=== PATIENT | female | born 1990 | race Asian ===

== ENCOUNTER 2017-10-26 13:56 | Emergency (ER) | payer OTHER ==
[2017-10-26] MEDS ORDERED: DEXAMETHASONE 10 MG/ML VIAL PO STA (15:48)
--- NOTE | 2017-10-26 15:55 | ED Physician Documentation ---
PD HPI UPPER EXT INJURY - Stated complaint Stated Complaint: SHOULDER INJ - Chief complaint Chief Complaint: Ext Problem - History obtained from History obtained from: Patient, Family - History of Present Illness Location: Right, Shoulder Type of injury: Twist Where injury occurred: Work Timing - onset: How many days ago (3) Timing - duration: Days (3) Timing - details: Gradual onset, Still present Improved by: Rest, Immobilization Worsened by: Moving, Palpating Associated symptoms: No: Weakness, Numbness, Tingling, Swelling Contributing factors: No: Anticoagulated Similar symptoms before: Has not had sx before Recently seen: Not recently seen - Additonal information Additional information: 27-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 She felt her shoulder be pulled and she has had pain in the shoulder since. She awoke this morning with worse pain that she has had in the last 2 days and she become concerned there may be more of an injury than she is realizing. She has pain over the supraspinatus area. Review of Systems Constitutional: denies: Fever Eyes: denies: Decreased vision Ears: denies: Ear pain Nose: denies: Congestion Throat: denies: Sore throat Cardiac: denies: Chest pain / pressure Respiratory: denies: Dyspnea, Cough GI: denies: Abdominal Pain, Nausea, Vomiting : denies: Dysuria, Frequency Skin: denies: Rash Musculoskeletal: reports: Extremity pain. denies: Neck pain, Back pain Neurologic: denies: Generalized weakness, Focal weakness, Numbness PD PAST MEDICAL HISTORY - Past Medical History Past Medical History: No - Past Surgical History Past Surgical History: No - Present Medications Home Medications: Ambulatory Orders Medication Instructions Recorded Confirmed No Known Home Medications [No 10/26/17 10/26/17 Known Home Medications] - Allergies Allergies/Adverse Reactions: Allergies Allergy/AdvReac Type Severity Reaction Status Date / Time No Known Drug Allergies Allergy Verified 10/26/17 14:05 - Social History Does the pt smoke?: Yes Smoking Status: Current every day smoker Does the pt drink ETOH?: Yes ETOH Use: Beer Does the pt have substance abuse?: No - Immunizations Immunizations are current?: Yes - POLST Patient has POLST: No PD ED PE NORMAL - Vitals Vital signs reviewed: Yes (Normal) - General General: Alert and oriented X 3, No acute distress, Well developed/nourished - HEENT HEENT: Atraumatic, PERRL, EOMI - Neck Neck: Supple, no meningeal sign, No bony TTP - Respiratory Respiratory: No respiratory distress - Back Back: No spinal TTP - Derm Derm: Normal color, Warm and dry, No rash - Extremities Extremities: No deformity, No edema, Other (There is tenderness to the supraspinatous on the right. There is good ROM of the shoulder passively with all pain referred to the supraspinatous. She is savanna to hold the shoulder in abduction.) - Neuro Neuro: No motor deficit, No sensory deficit Eye Opening: Spontaneous Motor: Obeys Commands Verbal: Oriented GCS Score: 15 - Psych Psych: Normal mood, Normal affect Results - Vitals Vitals: Vital Signs - 24 hr 10/26/17 14:03 Temperature 36.3 C L Heart Rate 71 Respiratory 18 Rate Blood Pressure 110/75 O2 Saturation 100 Oxygen O2 Source Room air - Rads (name of study) right shoulder Radiology: Prelim report reviewed (Impression: Normal shoulder radiography.), EMP read indepedently, See rad report PD MEDICAL DECISION MAKING - ED course Complexity details: reviewed results, re-evaluated patient, considered differential, d/w patient, d/w family ED course: 27-year-old female with a shoulder sprain from a pulling injury at work is placed into a sling and given dexamethasone. She has no evidence of fracture on her x-ray of her shoulder she does have good range of motion with the shoulder she has most of her pain over the supra supraspinatus muscle and she is expected to have full recovery. She is given a sling and instructions on ROM exercises. Departure - Departure Disposition: 01 Home, Self Care Clinical Impression: Sprain of right shoulder Qualifiers: Encounter type: initial encounter Shoulder sprain type: unspecified sprain Qualified Code(s): S43.401A - Unspecified sprain of right shoulder joint, initial encounter Condition: Stable Instructions: ED Sprain Shoulder Follow-Up: [facility] [Provider Group] Forms: Activity restrictions
--- NOTE | 2017-10-26 16:20 | XRAY Report ---
EXAM: RIGHT SHOULDER RADIOGRAPHY EXAM DATE: 10/26/2017 04:13 PM. CLINICAL HISTORY: Pulling injury to supraspinatus. COMPARISON: None. TECHNIQUE: 3 views. FINDINGS: Bones: Normal. No fracture or bone lesion. Joints: The glenohumeral and acromioclavicular joints are normal. Soft tissues: The visualized hemithorax is unremarkable. No soft tissue swelling. IMPRESSION: Normal shoulder radiography. [facility] Referring Provider Line: [phone] SITE ID: [id number]
--- NOTE | 2017-10-26 16:20 | XRAY Preliminary Report ---
Exam: XR SHOULDER 3 VIEW RT IMPRESSION: Normal shoulder radiography. [facility] SITE ID: [id number]
[2017-10-26 16:46] VITALS: BP 99/78
== END 2017-10-26 16:45 | disposition home or self-care (01) ==
LOC: ED 13:56
DX: S43.401A Unspecified sprain of right shoulder joint, initial encounter (principal); X50.9XXA Other and unspecified overexertion or strenuous movements or postures, initial encounter; Y93.F2 Activity, caregiving, lifting; Y92.239 Unspecified place in hospital as the place of occurrence of the external cause; Y99.0 Civilian activity done for income or pay; F17.200 Nicotine dependence, unspecified, uncomplicated
CPT/HCPCS: 99283

== ENCOUNTER 2017-12-11 15:58 | Outpatient (CLI) | payer OTHER ==
--- NOTE | 2017-12-12 11:17 | MRI Report ---
EXAM: RIGHT SHOULDER MRI WITHOUT CONTRAST EXAM DATE: 12/11/2017 05:16 PM. CLINICAL HISTORY: Shoulder pain after trauma. COMPARISON: 10/26/2017 plain x-ray of the shoulder. TECHNIQUE: Multiplanar, multisequence T1-weighted and fluid-sensitive sequences of the shoulder witho ut contrast. Other: None. FINDINGS: Acromioclavicular Region: The acromion is type I unipartite. The acromioclavicular joint is unremarka ble. The coracoacromial and coracoclavicular ligaments are intact. Small amount of bursal fluid. Glenohumeral Region: No subluxation. No effusion or loose bodies. The articular cartilage is unremark able. The glenohumeral ligaments and joint capsule are unremarkable. Bone Marrow: No fracture, marrow edema or bone lesions. Labrum: There is some abnormal signal at the anterior inferior labrum which is difficult to further c haracterize without contrast. Series 701 image 8, series 501 image 10. Musculature/Rotator Cuff: Supraspinatus and infraspinatus tendons are somewhat thickened and show delmer e increased T2 signal. Teres minor subscapularis portions of the cuff appear normal. No proximal musc le bundle fatty atrophy. No edema. Biceps Tendon: The long head of the biceps tendon and biceps jillian are intact. Other: The subcutaneous tissues are unremarkable. IMPRESSION: 1. Type I unipartite undersurface osseous acromion shape. Small amount of bursal fluid is present. 2. Some abnormal signal at the anterior inferior labrum, difficult to further characterize without co ntrast. This may be related to an inferior labral tear. 3. Moderate tendinitis is seen at supraspinatus and infraspinatus portions of the cuff. 4. Long head biceps appears intact. No other worrisome imaging features. [facility] MUSCULOSKELETAL [facility]IOLOGY SECTION Referring Provider Line: [phone] SITE ID: [id number]
== END 2017-12-11 15:59 | disposition home or self-care (01) ==
LOC: DI 15:58
PROVIDERS: ATTEND Orthopaedic Surgery
DX: M75.91 Shoulder lesion, unspecified, right shoulder (principal)

== ENCOUNTER 2020-01-04 10:42 | Outpatient (CLI) | payer BC, OTHER | END 2020-01-04 10:43 | disposition home or self-care (01) | LOC: COV 10:42 | PROVIDERS: ATTEND Family Medicine | DX: R50.9 Fever, unspecified (principal); R05 Cough | CPT/HCPCS: 81599 ==

== ENCOUNTER 2020-07-21 07:00 | Outpatient (CLI) | payer BC | END 2020-07-21 23:59 | disposition home or self-care (01) | LOC: LAB.R 07:00 | PROVIDERS: ATTEND Family Medicine | DX: J02.9 Acute pharyngitis, unspecified (principal) | CPT/HCPCS: 87070 ==

== ENCOUNTER 2023-03-14 08:00 | Outpatient (CLI) | payer BC | END 2023-03-14 23:59 | disposition home or self-care (01) | LOC: LAB.N 08:00 | PROVIDERS: ATTEND Specialist | DX: J02.9 Acute pharyngitis, unspecified (principal) | CPT/HCPCS: 87070 ==

== ENCOUNTER 2023-03-15 11:25 | Outpatient (CLI) | payer BC ==
[2023-03-15 17:51] LABS: BASOPHILS # (AUTO) 0.1 10^3/uL (0.0-0.1); BASOPHILS % (AUTO) 0.6 %; EOSINOPHILS # (AUTO) 0.3 10^3/uL (0.0-0.7); EOSINOPHILS % (AUTO) 2.6 %; HCT - HEMATOCRIT 43.1 % (37.0-47.0); LYMPHOCYTES # (AUTO) 2.2 10^3/uL (1.5-3.5); LYMPHOCYTES % (AUTO) 22.1 %; MEAN CORPUSCULAR HEMOGLOBIN 30.4 pg (27.0-31.0); MEAN CORPUSCULAR HGB CONC 32.5 g/dL (32.0-36.0); MEAN CORPUSCULAR VOLUME 93.5 fL (81.0-99.0); MEAN PLATELET VOLUME 10.1 fL (7.9-10.8); MONOCYTES % (AUTO) 9.6 %; NEUTROPHILS # (AUTO) 6.4 10^3/uL (1.5-6.6); NEUTROPHILS % (AUTO) 64.9 %; PLT - PLATELET COUNT 363 10^3/uL (130-450); RED BLOOD COUNT 4.61 10^6/uL (4.20-5.40); RED CELL DISTRIBUTION WIDTH 13.3 % (12.0-15.0); WHITE BLOOD COUNT 9.9 x10^3/uL (4.8-10.8)
[2023-03-15 18:13] LABS: ALBUMIN 3.9 g/dL (3.2-5.5); ALBUMIN/GLOBULIN RATIO 1.1 (1.0-2.2); BILIRUBIN,TOTAL 0.3 mg/dL (0.2-1.0); CALCIUM 9.3 mg/dL (8.5-10.3); CREATININE 0.6 mg/dL (0.4-1.0); TOTAL PROTEIN 7.5 g/dL (6.7-8.2)
== END 2023-03-15 11:26 | disposition home or self-care (01) ==
LOC: LAB.N 11:25
PROVIDERS: ATTEND Specialist
DX: J02.9 Acute pharyngitis, unspecified (principal)
CPT/HCPCS: 36415; 80053; 85025

== ENCOUNTER 2024-01-31 08:20 | Outpatient (CLI) | payer BC ==
--- NOTE | 2024-02-03 09:53 | Mammography Report ---
BILATERAL DIGITAL DIAGNOSTIC MAMMOGRAM 3D/2D WITH MAGNIFICATION: 01/31/2024 CLINICAL: Baseline exam. Focal left breast pain. Bilateral clear nipple discharge. No prior exams were available for comparison. Both breasts are heterogeneously dense, which may obscure small masses (category c / 51-75% glandular tissue). No significant masses, calcifications, or other findings are seen in either breast. IMPRESSION: INCOMPLETE: NEEDS ADDITIONAL IMAGING EVALUATION No mammographic evidence of malignancy. A targeted ultrasound is recommended and will immediately follow. Based on the Tyrer Cuzick model (a risk assessment model) the patient's lifetime risk is 9.7% and her 10 year risk is 0.6%. According to the ACR, ACS, and NCCN guidelines, an annual breast MRI exam tiara g with mammogram is recommended if the patient's lifetime risk is 20% or greater. This exam was interpreted at Station ID: [id number]. NOTE: For mammograms, a report in lay terms will be sent to the patient. Approximately 15% of breast malignancies will not be visualized mammographically. In the management of a palpable breast mass, a negative mammogram must not discourage biopsy of a clinically suspicious lesion. Electronically Signed By: Theodore Mejia M.D. slc/:01/31/2024 09:28:37 ACR BI-RADS Category 0: Incomplete 3340F PARENCHYMAL PATTERN: (D) - The breast(s) demonstrate(s) heterogeneously dense fibroglandular parenchy ma. BI-RADS CATEGORY: (0) - 0 Ultrasound [id number] Immediate follow-up LATERALITY: (B)
--- NOTE | 2024-02-03 09:54 | Ultrasound Report ---
LIMITED ULTRASOUND OF LEFT BREAST: 01/31/2024 CLINICAL: Nipple discharge, left breast, not bloody. Comparison is made to exams dated: 01/31/2024 ultrasound and 01/31/2024 mammogram - [facility]. Color flow and real-time ultrasound of the left breast retroareolar were performed. There is a 0.9 cm dilated duct in the left breast central to the nipple in the retroareolar region. This dilated duct displays internal echoes. This correlates with the nipple discharge. Color flow i maging demonstrates that there is no vascularity present. IMPRESSION: PROBABLY BENIGN The 0.9 cm dilated duct with debris in the left breast is probably benign. A follow-up ultrasound in 6 months is recommended to demonstrate stability. Exam findings were conveyed to the patient. Bilateral clear nipple discharge. 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 Patient is advised to monitor for significant change. Clinical follow-up as leonela ball This exam was interpreted at Station ID: [id number]. Electronically Signed By: Theodore Mejia M.D. slc/:01/31/2024 09:47:07 Ultrasound BI-RADS: 3 Probably benign BI-RADS CATEGORY: (3) - 3 Ultrasound [id number] 6 month follow-up LATERALITY: (B)
--- NOTE | 2024-02-03 09:54 | Ultrasound Report ---
LIMITED ULTRASOUND OF RIGHT BREAST: 01/31/2024 CLINICAL: Nipple discharge, left breast, not bloody. Comparison is made to exams dated: 01/31/2024 mammogram and 01/31/2024 ultrasound - [facility]. Real-time ultrasound of the right breast retroareolar was performed. Harvey scale images of the real-t rosa examination were reviewed. No significant abnormalities were seen sonographically in the right breast. IMPRESSION: NEGATIVE There is no sonographic evidence of malignancy. No mass or right dilated duct. Exam findings were conveyed to the patient. Patient is advised to monitor for significant change. This exam was interpreted at Station ID: [id number]. Electronically Signed By: Theodore Mejia M.D. slc/:01/31/2024 09:50:47 Ultrasound BI-RADS: 1 Negative BI-RADS CATEGORY: (1) - 1 Unspecified - other recall n/a LATERALITY: (B)
== END 2024-01-31 08:21 | disposition home or self-care (01) ==
LOC: DI 08:20
PROVIDERS: ATTEND Nurse Practitioner
DX: N64.4 Mastodynia (principal); R92.333 Mammographic heterogeneous density, bilateral breasts; N60.42 Mammary duct ectasia of left breast